=== PATIENT | male | born 1960 | race Caucasian/White ===

== ENCOUNTER 2022-07-26 02:09 | Inpatient (IN) | payer MEDICARE, OTHER ==
[2022-07-26] VITALS (40 sets, daily range): BP systolic 70–142; BP diastolic 20–108
[~2022-07-26] VITALS: Ht 190.5 cm; Wt 108.4 kg
[~2022-07-26 02:09] MED LIST: MORP15TA67 MT; MORP60TA32 MT
[2022-07-26 02:51] LABS: BASOPHILS % 0.7 % (0.0-2.0); EOSINOPHILS % 0.6 % (0.0-5.0); LYMPHOCYTES % 11.5 % (20.0-50.0); MEAN CORPUSCULAR HEMOGLOBIN 26.9 pg (28.0-32.0); MEAN CORPUSCULAR VOLUME 80.9 fL (80.0-94.0); MEAN PLATELET VOLUME 9.3 fl (7.4-10.4); NEUTROPHILS % 84.2 % (40.0-76.0); PLATELET 288 x1000/uL (130-400); RED BLOOD CELL COUNT 5.56 mill/uL (4.7-6.1); RED CELL DISTRIBUTION WIDTH 14.2 % (11.6-14.6)
[2022-07-26 03:06] LABS: CHLORIDE 97 mEq/L (98-107)
[2022-07-26 03:28] LABS: BG BASE EXCESS -2.8 mmol/L (-2.0-2.0); BG CARBOXYHEMOGLOBIN 0.8 % (0.5-1.5); BG DEOXYHEMOGLOBIN 0.1 % (0.0-5.0); BG FRACTION INSPIRED OXYGEN 100; BG HCO3 ACT 23.4 mmol/L (22.0-26.0); BG METHEMOGLOBIN 0.5 % (0.0-1.5); BG OXYGEN SATURATION 99.9 % (92.0-98.5); BG OXYHEMOGLOBIN 98.6 % (94.0-97.0); BG PCO2 45.8 mmHg (35.0-45.0); BG PH 7.327 (7.350-7.450); BG PO2 407.4 mmHg (75.0-100.0); BG SAMPLE SITE RIGHT RADIAL; BG TOTAL HEMOGLOBIN 15.4 g/dL (12.0-18.0); BG VENT MODE MASK - BIPAP
[2022-07-26] MEDS ORDERED: ENOXAPARIN 60MG/0.6ML SYR SUBCUT NR (03:45)
[2022-07-26] MEDS ORDERED: ASPIRIN 325MG EC TABLET PO NR (03:45)
[2022-07-26] MEDS ORDERED: POTASSIUM CHLORIDE INJ 40 MEQ in DEXTROSE 5% WATER 1,000 ML IV NR (04:30)
[2022-07-26] MEDS ORDERED: ETOMIDATE 2MG/ML 10ML VIAL IV ONE ×3 (07:40→09:45)
[2022-07-26] MEDS ORDERED: SUCCINYLCHOLINE CHLORIDE 200MG/10ML IV ONE ×2 (07:40→09:45)
[2022-07-26] MEDS ORDERED: METOPROLOL TARTRATE 5MG/5ML VIAL IV NR (08:45)
[2022-07-26 09:15] LABS: BG BASE EXCESS -5.9 mmol/L (-2.0-2.0); BG CARBOXYHEMOGLOBIN 1.1 % (0.5-1.5); BG DEOXYHEMOGLOBIN 3.5 % (0.0-5.0); BG FRACTION INSPIRED OXYGEN 50; BG HCO3 ACT 19.1 mmol/L (22.0-26.0); BG METHEMOGLOBIN 0.4 % (0.0-1.5); BG OXYGEN SATURATION 96.4 % (92.0-98.5); BG PCO2 36.5 mmHg (35.0-45.0); BG PH 7.337 (7.350-7.450); BG PO2 83.4 mmHg (75.0-100.0); BG SAMPLE SITE RIGHT RADIAL; BG TOTAL HEMOGLOBIN 16.4 g/dL (12.0-18.0); BG TOTAL RESPIRATORY RATE 36 b/min; BG VENT MODE MASK - BIPAP
[2022-07-26] MEDS ORDERED: MIDAZOLAM HCL 100 MG in DEXT 5% WATER 80 ML IV ONE (09:15)
[2022-07-26] MEDS ORDERED: POTASSIUM CHLORIDE INJ 40 MEQ in DEXT 5% WATER 250 ML IV ONE (09:30)
[2022-07-26] MEDS ORDERED: MIDAZOLAM HCL 100 MG in SODIUM CHLORIDE 0.9% 80 ML IV ONE (09:45)
[2022-07-26 10:06] LABS: BG BASE EXCESS -7.8 mmol/L (-2.0-2.0); BG CARBOXYHEMOGLOBIN 0.5 % (0.5-1.5); BG DEOXYHEMOGLOBIN 5.1 % (0.0-5.0); BG FRACTION INSPIRED OXYGEN 100; BG METHEMOGLOBIN 0.4 % (0.0-1.5); BG OXYGEN SATURATION 94.9 % (92.0-98.5); BG PCO2 38.1 mmHg (35.0-45.0); BG PH 7.293 (7.350-7.450); BG PO2 76.7 mmHg (75.0-100.0); BG SAMPLE SITE RIGHT BRACHIAL; BG TOTAL HEMOGLOBIN 15.6 g/dL (12.0-18.0); BG VENT MODE VENT - AC
[2022-07-26] MEDS ORDERED: NOREPINEPHRINE 8 MG in DEXT 5% WATER 242 ML IV STA (10:30)
[2022-07-26] MEDS ORDERED: NOREPINEPHRINE 8 MG in DEXT 5% WATER 242 ML IV NR (11:00)
[2022-07-26] MEDS ORDERED: LORAZEPAM 2MG/ML CPJ IV NR (11:15)
[2022-07-26] MEDS ORDERED: VANCOMYCIN 1G PREMIX 200 ML IV SCH ×3 (11:30→21:00)
[2022-07-26] MEDS ORDERED: ONDANSETRON HCL 4MG/2ML INJ IV PRN (11:30)
[2022-07-26] MEDS ORDERED: IPRATROPIUM/ALBUTEROL 0.5-3(2.5)MG/3ML NEB HHN PRN (11:30)
[2022-07-26] MEDS ORDERED: PHENYLEPHRINE 100 MG in DEXT 5% WATER 240 ML IV PRN (12:00)
[2022-07-26] MEDS ORDERED: PIPERACILLIN/TAZ 3.375G PREMIX 50 ML IV SCH (12:00)
[2022-07-26] MEDS ORDERED: ENOXAPARIN 40MG/0.4ML SYR SUBCUT NR (12:00)
[2022-07-26 12:33] LABS: PROTHROMBIN TIME 11.2 sec (9.6-11.0)
[2022-07-26] MEDS ORDERED: IOHEXOL-350 100 ML BOTTLE ONE (14:21)
[2022-07-26] MEDS: PIPERACILLIN/TAZOBACTAM 3.375G in DEXT 5% WATER 50ML IV SCH ×2 (14:35→21:26)
[2022-07-26] MEDS ORDERED: NOREPINEPHRINE 8 MG in SODIUM CHLORIDE 0.9% 242 ML IV NR (14:45)
[2022-07-26] MEDS ORDERED: DEXTROSE 50% WATER 50ML SYRINGE IV PRN (14:45)
[2022-07-26] MEDS ORDERED: SODIUM CHLORIDE 0.9% 1,000 ML IV SCH (14:45)
[2022-07-26 16:56] LABS: BG CARBOXYHEMOGLOBIN 0.2 % (0.5-1.5); BG DEOXYHEMOGLOBIN 22.1 % (0.0-5.0); BG FRACTION INSPIRED OXYGEN 100; BG HCO3 ACT 19.5 mmol/L (22.0-26.0); BG METHEMOGLOBIN 0.1 % (0.0-1.5); BG OXYGEN SATURATION 77.8 % (92.0-98.5); BG OXYHEMOGLOBIN 77.6 % (94.0-97.0); BG PCO2 31.7 mmHg (35.0-45.0); BG PH 7.406 (7.350-7.450); BG PO2 40.7 mmHg (75.0-100.0); BG SAMPLE SITE RIGHT BRACHIAL; BG TOTAL HEMOGLOBIN 16.1 g/dL (12.0-18.0); BG VENT MODE VENT - AC
[2022-07-26] MEDS ORDERED: SODIUM BICARBONATE 8.4% 1 MEQ/ML 50ML SYR IV NR (17:15)
[2022-07-26] MEDS ORDERED: NOREPINEPHRINE 32 MG in DEXT 5% WATER 218 ML IV PRN (17:15)
[2022-07-26] MEDS ORDERED: MIDAZOLAM 100MG/100ML PMX 100 ML IV PRN (17:15)
[2022-07-26] MEDS: BLOOD SUGAR DIAGNOSTIC STRIP TEST SCH (17:31)
[2022-07-26] MEDS: INSULIN LISPRO 100 UNITS/ML SUBCUT SCH ×2 (17:32→21:37)
[2022-07-26] MEDS ORDERED: DOBUTAMINE 500MG PREMIX 250 ML IV PRN (18:00)
[2022-07-26] MEDS ORDERED: FUROSEMIDE 40MG/4ML VIAL IVP NR (18:00)
[2022-07-26 19:41] LABS: CLARITY URINE CLOUDY (CLEAR); COLOR URINE DARK YELLOW (YELLOW); KETONES URINE TRACE (NEGATIVE); LEUKOCYTE ESTERASE URINE TRACE (NEGATIVE); NITRITE URINE NEGATIVE (NEGATIVE); OCCULT BLOOD URINE TRACE (NEGATIVE); PH URINE 5.5 (4.5-8.0); PROTEIN URINE 2+ (NEGATIVE)
[2022-07-26 19:53] LABS: *AMPHETAMINES SCREEN URINE NEGATIVE (NEGATIVE); *BARBITURATES SCREEN URINE NEGATIVE (NEGATIVE); *BENZODIAZEPINES SCREEN URINE PRESUMTIVE POSITIVE (NEGATIVE); *COCAINE SCREEN URINE NEGATIVE (NEGATIVE); CANNABINOID URINE SCREEN PRESUMTIVE POSITIVE (NEGATIVE); METHADONE URINE SCREEN NEGATIVE (NEGATIVE); OPIATES URINE SCREEN PRESUMTIVE POSITIVE (NEGATIVE); PHENCYCLIDINE URINE SCREEN NEGATIVE (NEGATIVE)
[2022-07-26] MEDS ORDERED: ENOXAPARIN 120MG/0.8ML SYR SUBCUT SCH (21:00)
[2022-07-26 23:52] LABS: CREATINE KINASE 330 IU/L (39-308)
[2022-07-27] VITALS (90 sets, daily range): BP systolic 78–141; BP diastolic 20–111
[2022-07-27] MEDS ORDERED: ACETAMINOPHEN 650MG SUPP PR PRN (00:15)
[2022-07-27] MEDS: DIGOXIN 500MCG/2ML AMP IV NR ×2 (00:27→04:45)
[2022-07-27] MEDS: BLOOD SUGAR DIAGNOSTIC STRIP TEST SCH ×4 (00:50→17:27)
[2022-07-27] MEDS: ENOXAPARIN 100MG/ML SYR SUBCUT SCH ×2 (00:57→11:57)
[2022-07-27] MEDS: INSULIN LISPRO 100 UNITS/ML SUBCUT SCH ×4 (01:02→21:39)
[2022-07-27] MEDS ORDERED: DIGOXIN 500MCG/2ML AMP IV NR ×2 (01:30→04:35)
[2022-07-27] MEDS: VANCOMYCIN 1.25GM PMX (XELLIA) 250 ML IV SCH (04:45)
[2022-07-27 05:41] LABS: HEMATOCRIT. 51.9 % (42.0-52.0); HEMOGLOBIN. 17.1 g/dL (14.0-18.0); MEAN CORPUSCULAR HEMOGLOBIN 26.8 pg (28.0-32.0); MEAN CORPUSCULAR VOLUME 81.4 fL (80.0-94.0); MEAN PLATELET VOLUME 9.9 fl (7.4-10.4); PLATELET 265 x1000/uL (130-400); RED BLOOD CELL COUNT 6.38 mill/uL (4.7-6.1); RED CELL DISTRIBUTION WIDTH 14.4 % (11.6-14.6)
[2022-07-27] MEDS: PIPERACILLIN/TAZOBACTAM 3.375G in DEXT 5% WATER 50ML IV SCH ×3 (06:14→21:38)
[2022-07-27 06:19] LABS: CHLORIDE 91 mEq/L (98-107)
[2022-07-27 06:30] LABS: HDL CHOLESTEROL 55 mg/dL (40-59); LDL CHOLESTEROL 23 mg/dL (5-100); PHOSPHORUS 4.3 mg/dL (2.5-4.9)
[2022-07-27 10:40] LABS: PLATELET ESTIMATE NORMAL
[2022-07-27 11:06] LABS: BG BASE EXCESS -5.3 mmol/L (-2.0-2.0); BG CARBOXYHEMOGLOBIN 0.3 % (0.5-1.5); BG DEOXYHEMOGLOBIN 0.9 % (0.0-5.0); BG FRACTION INSPIRED OXYGEN 100; BG HCO3 ACT 20.3 mmol/L (22.0-26.0); BG METHEMOGLOBIN 0.8 % (0.0-1.5); BG OXYGEN SATURATION 99.1 % (92.0-98.5); BG PCO2 40.3 mmHg (35.0-45.0); BG PH 7.321 (7.350-7.450); BG SAMPLE SITE RIGHT BRACHIAL; BG TOTAL HEMOGLOBIN 17.2 g/dL (12.0-18.0); BG VENT MODE VENT - AC
[2022-07-27] MEDS ORDERED: PHENYLEPHRINE 100 MG in SODIUM CHLORIDE 0.9% 240 ML IV PRN ×2 (12:17→14:45)
[2022-07-27] MEDS ORDERED: NOREPINEPHRINE 32 MG in SODIUM CHLORIDE 0.9% 218 ML IV PRN (12:17)
[2022-07-27] MEDS: MIDAZOLAM HCL 100 MG in SODIUM CHLORIDE 0.9% 100 ML IV PRN (12:51)
[2022-07-27] MEDS: NOREPINEPHRINE 32 MG in SODIUM CHLORIDE 0.9% 218 ML IV PRN ×2 (14:22→21:45)
[2022-07-27] MEDS ORDERED: PANTOPRAZOLE SODIUM 40 MG/VIAL IV SCH (17:00)
[2022-07-27] MEDS: PANTOPRAZOLE 80 MG in SODIUM CHLORIDE 0.9% 100 ML IV SCH (22:15)
[2022-07-28] VITALS (73 sets, daily range): BP systolic 65–135; BP diastolic 45–98
[2022-07-28] MEDS ORDERED: FUROSEMIDE 40MG/4ML VIAL IVP NR ×2 (00:30→17:30)
[2022-07-28] MEDS: VANCOMYCIN 1.25GM PMX (XELLIA) 250 ML IV SCH (01:54)
[2022-07-28] MEDS: KCL 10MEQ/50ML PREMIX 50 ML IV NR ×3 (02:01→05:42)
[2022-07-28] MEDS: PIPERACILLIN/TAZOBACTAM 3.375G in DEXT 5% WATER 50ML IV SCH ×2 (05:42→13:12)
[2022-07-28] MEDS: BLOOD SUGAR DIAGNOSTIC STRIP TEST SCH ×4 (05:43→17:42)
[2022-07-28 05:56] LABS: HEMATOCRIT. 45.6 % (42.0-52.0); HEMOGLOBIN. 14.9 g/dL (14.0-18.0); MEAN CORPUSCULAR HEMOGLOBIN 26.8 pg (28.0-32.0); MEAN CORPUSCULAR VOLUME 81.6 fL (80.0-94.0); MEAN PLATELET VOLUME 10.2 fl (7.4-10.4); PLATELET 252 x1000/uL (130-400); RED BLOOD CELL COUNT 5.59 mill/uL (4.7-6.1); RED CELL DISTRIBUTION WIDTH 14.4 % (11.6-14.6)
[2022-07-28] MEDS: INSULIN LISPRO 100 UNITS/ML SUBCUT SCH ×3 (06:20→17:48)
[2022-07-28] MEDS: NOREPINEPHRINE 32 MG in SODIUM CHLORIDE 0.9% 218 ML IV PRN ×2 (08:02→17:22)
[2022-07-28] MEDS: PANTOPRAZOLE 80 MG in SODIUM CHLORIDE 0.9% 100 ML IV SCH ×2 (08:04→17:48)
[2022-07-28 08:28] LABS: BG BASE EXCESS -1.5 mmol/L (-2.0-2.0); BG CARBOXYHEMOGLOBIN 0.6 % (0.5-1.5); BG DEOXYHEMOGLOBIN 11.9 % (0.0-5.0); BG FRACTION INSPIRED OXYGEN 50; BG HCO3 ACT 22.7 mmol/L (22.0-26.0); BG METHEMOGLOBIN 0.3 % (0.0-1.5); BG OXYHEMOGLOBIN 87.2 % (94.0-97.0); BG PCO2 37.1 mmHg (35.0-45.0); BG PH 7.404 (7.350-7.450); BG PO2 52.8 mmHg (75.0-100.0); BG SAMPLE SITE RIGHT BRACHIAL; BG TOTAL HEMOGLOBIN 16.4 g/dL (12.0-18.0); BG VENT MODE VENT - AC
[2022-07-28] MEDS ORDERED: SODIUM BICARBONATE 8.4% 1 MEQ/ML 50ML SYR IV ONE (09:34)
[2022-07-28] MEDS ORDERED: CALCIUM CHLORIDE 1GM/10ML SYR IV ONE (09:34)
[2022-07-28] MEDS ORDERED: EPINEPHRINE 0.1MG/ML (1:10,000) 10ML SYR ONE (09:34)
[2022-07-28 10:12] LABS: PLATELET ESTIMATE NORMAL
[2022-07-28] MEDS: ENOXAPARIN 100MG/ML SYR SUBCUT SCH ×2 (11:21)
[2022-07-28] MEDS: MIDODRINE HCL 5MG TABLET PO SCH ×2 (13:12→17:00)
[2022-07-28] MEDS: MIDAZOLAM HCL 100 MG in SODIUM CHLORIDE 0.9% 100 ML IV PRN (15:41)
[2022-07-29] MEDS ORDERED: VANCOMYCIN 1G PREMIX 200 ML IV SCH (08:00)
[2022-07-29 09:06] LABS: *CREATININE RANDOM URINE 171.6 mg/dL (Not Estab.); MICROALBUMIN RANDOM URINE 325.7 ug/mL (Not Estab.)
[2022-07-30 19:08] LABS: ANTI-MYELOPEROXIDASE AB < 0.2 units (0.0-0.9); ANTI-PROTEINASE 3 ABS < 0.2 units (0.0-0.9); GLOMERULAR BASEMENT MEMB AB < 0 units (0.0-0.9)
== END 2022-07-28 18:34 | DRG 208 ==
LOC: ER 02:09 → MICUNO 06:00 → EDBEDREQSVC 09:13 → ENRESERV 11:33
PROVIDERS: ADMIT Internal Medicine; ATTEND Internal Medicine
PROC: 5A1945Z Respiratory Ventilation, 24-96 Consecutive Hours (ICD-10-PCS; principal; 2022-07-26)
PROC: 0BH17EZ Insertion of Endotracheal Airway into Trachea, Via Natural or Artificial Opening (ICD-10-PCS; 2022-07-26)
PROC: 5A09357 Assistance with Respiratory Ventilation, Less than 24 Consecutive Hours, Continuous Positive Airway Pressure (ICD-10-PCS; 2022-07-26)
PROC: 02HV33Z Insertion of Infusion Device into Superior Vena Cava, Percutaneous Approach (ICD-10-PCS; 2022-07-26)
PROC: B548ZZA Ultrasonography of Superior Vena Cava, Guidance (ICD-10-PCS; 2022-07-26)
PROC: 5A12012 Performance of Cardiac Output, Single, Manual (ICD-10-PCS; 2022-07-28)
DX: J96.01 Acute respiratory failure with hypoxia (principal); J18.9 Pneumonia, unspecified organism; I21.4 Non-ST elevation (NSTEMI) myocardial infarction; I50.23 Acute on chronic systolic (congestive) heart failure; N17.0 Acute kidney failure with tubular necrosis; E87.1 Hypo-osmolality and hyponatremia; I42.9 Cardiomyopathy, unspecified; I48.91 Unspecified atrial fibrillation; E87.6 Hypokalemia; F17.210 Nicotine dependence, cigarettes, uncomplicated; G43.909 Migraine, unspecified, not intractable, without status migrainosus; I11.0 Hypertensive heart disease with heart failure; Z20.822 Contact with and (suspected) exposure to COVID-19; F12.90 Cannabis use, unspecified, uncomplicated; I49.3 Ventricular premature depolarization; M19.90 Unspecified osteoarthritis, unspecified site; K80.20 Calculus of gallbladder without cholecystitis without obstruction; E11.65 Type 2 diabetes mellitus with hyperglycemia; I25.10 Atherosclerotic heart disease of native coronary artery without angina pectoris; E05.90 Thyrotoxicosis, unspecified without thyrotoxic crisis or storm; Z82.49 Family history of ischemic heart disease and other diseases of the circulatory system; Z79.891 Long term (current) use of opiate analgesic
CPT/HCPCS: 31500; 36415; 36573; 36600; 71045; 71275; 76770; 78580; 80048; 80053; 80061; 80202; 80305; 81003; 82043; 82375; 82550; 82570; 82805; 82962; 83036; 83516; 83520; 83735; 83880; 84100; 84132; 84145; 84156; 84484; 85025; 85379; 85651; 86256; 87070; 87426; 93005; 93306; 93970; 94002; 94003; 94640; 94660; 99291; A6261; C1725; C9113; J0330; J1160; J1650; J1815; J1940; J2060; J2250; J2543; J3370; J3480; J3490; J7030; J7050; J7060; J7070; Q9967; A4315